=== PATIENT | female | born 2000 | race Caucasian/White ===

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

== ENCOUNTER → 2020-01-12 19:05 | Observation (INO) ==
[2020-01-12 18:39] LABS: Bacteria,Urine Few per hpf (None-Few); Bilirubin,Urine Negative (Negative); Blood,Urine Negative (Negative); Clarity,Urine Turbid (Clear); Color,Urine Light-Yellow (Yellow); Glucose,Urine (UA) Normal (Normal); Ketones,Urine Negative (Negative); Leukocyte Esterase,Urine Small (Negative); Nitrite,Urine Negative (Negative); Protein,Urine Negative (Neg-Trace); RBC,Urine 0-3 per hpf (0-3); Specific Gravity,Urine 1.005 (1.010-1.025); Squamous Epithelial Cell,Urine Few per hpf (None-Few); Urobilinogen,Urine Normal (Normal)
[2020-01-12 18:42] LABS: Basophils % 0.5 %; Eosinophils # 0.1 K/mcL (0.0-0.6); Hematocrit 31.8 % (35.3-44.9); Hemoglobin 10.5 g/dL (11.5-15.4); Immature Granulocytes % 1.2 % (0-4); Lymphocytes # 1.8 K/mcL (0.6-4.6); Lymphocytes % 21.2 %; Mean Corpuscular Hemoglobin 27.8 pg (28.0-33.3); Mean Corpuscular Volume 84.1 fL (83.0-100.0); Mean Platelet Volume 9.5 fL (9.4-12.4); Monocytes # 1.1 K/mcL (0.0-1.3); Monocytes % 12.7 %; Neutrophils # 5.3 K/mcL (1.6-8.9); Platelet Count 281 K/mcL (140-400); Red Blood Count 3.78 M/mcL (3.82-4.97); Red Cell Distribution Width 13.3 % (11.5-14.5); Segmented Neutrophils % 63.4 %; White Blood Count 8.3 K/mcL (4.3-11.1)
== END | disposition home or self-care (01) ==
LOC: 1NENULAB
PROVIDERS: ADMIT Obstetrics & Gynecology; ATTEND Obstetrics & Gynecology

== ENCOUNTER 2020-01-28 14:03 | Observation (INO) ==
[2020-01-28 15:01] LABS: Bacteria,Urine Few per hpf (None-Few); Bilirubin,Urine Negative (Negative); Blood,Urine Large (Negative); Clarity,Urine Turbid (Clear); Color,Urine Yellow (Yellow); Glucose,Urine (UA) Normal (Normal); Ketones,Urine Negative (Negative); Leukocyte Esterase,Urine Moderate (Negative); Mucus,Urine Few per lpf (None-Few); Nitrite,Urine Negative (Negative); Protein,Urine 30 mg/dL (Neg-Trace); RBC,Urine TNTC per hpf (0-3); Specific Gravity,Urine 1.017 (1.010-1.025); Squamous Epithelial Cell,Urine Moderate per hpf (None-Few); Transitional Epi Cells,Urine Many per hpf (None-Few); Urobilinogen,Urine Normal (Normal); WBC,Urine 30-50 per hpf (0-3)
[2020-01-28] MEDS ORDERED: cefTRIAXone 1,000 MG in 0.9 % Sodium Chloride Mini Bag 100 ML IVPB ONE (15:07)
[2020-01-28] MEDS ORDERED: Ringers Solution, Lactated 1,000 ML IVC ONE (15:07)
[2020-01-28] MEDS ORDERED: Ringers Solution, Lactated 1,000 ML ONE (15:09)
[2020-01-28 15:34] LABS: Basophils % 0.4 %; Eosinophils # 0.1 K/mcL (0.0-0.6); Eosinophils % 0.8 %; Hematocrit 30.4 % (35.3-44.9); Hemoglobin 9.6 g/dL (11.5-15.4); Immature Granulocytes % 1.2 % (0-4); Lymphocytes # 1.6 K/mcL (0.6-4.6); Lymphocytes % 19.5 %; Mean Corpuscular HGB Conc 31.6 g/dL (31.6-35.5); Mean Corpuscular Hemoglobin 26.4 pg (28.0-33.3); Mean Corpuscular Volume 83.5 fL (83.0-100.0); Mean Platelet Volume 9.9 fL (9.4-12.4); Monocytes % 11.8 %; Neutrophils # 5.6 K/mcL (1.6-8.9); Platelet Count 224 K/mcL (140-400); Red Blood Count 3.64 M/mcL (3.82-4.97); Red Cell Distribution Width 13.4 % (11.5-14.5); Segmented Neutrophils % 66.3 %; White Blood Count 8.4 K/mcL (4.3-11.1)
== END 2020-01-28 17:10 | disposition home or self-care (01) ==
LOC: 1NENULAB
PROVIDERS: ADMIT Obstetrics & Gynecology; ATTEND Obstetrics & Gynecology

== ENCOUNTER 2020-02-17 13:14 | Observation (INO) ==
[2020-02-17] MEDS ORDERED: Ondansetron 4 MG/2 ML VIAL IVP ONE (17:08)
[2020-02-17] MEDS ORDERED: Ringers Solution, Lactated 1,000 ML IVC SCH (17:15)
== END 2020-02-17 20:25 | disposition home or self-care (01) ==
LOC: 1NENULAB
PROVIDERS: ADMIT Obstetrics & Gynecology; ATTEND Obstetrics & Gynecology

== ENCOUNTER → 2020-02-20 04:00 | Observation (INO) ==
[2020-02-19 22:57] LABS: Bacteria,Urine Few per hpf (None-Few); Bilirubin,Urine Negative (Negative); Blood,Urine Negative (Negative); Clarity,Urine Turbid (Clear); Color,Urine Light-Yellow (Yellow); Glucose,Urine (UA) Normal (Normal); Ketones,Urine Negative (Negative); Leukocyte Esterase,Urine Moderate (Negative); Mucus,Urine Few per lpf (None-Few); Nitrite,Urine Negative (Negative); Protein,Urine Trace mg/dL (Neg-Trace); Specific Gravity,Urine 1.014 (1.010-1.025); Squamous Epithelial Cell,Urine Few per hpf (None-Few); Urobilinogen,Urine Normal (Normal)
[2020-02-20 02:32] LABS: Candida DNA DETECTED (Not Detect); Gardnerella DNA Not Detected (Not Detect); Trichomonas DNA Not Detected (Not Detect)
[~2020-02-20 04:00] MED LIST: Morphine Sulfate 2 MG/ML SYRINGE IVP ONE; Ondansetron 4 MG/2 ML VIAL IVP ONE
== END | disposition home or self-care (01) ==
LOC: 1NENULAB
PROVIDERS: ADMIT Obstetrics & Gynecology; ATTEND Obstetrics & Gynecology

== ENCOUNTER 2020-03-07 14:55 | Inpatient (IN) ==
[2020-03-07] MEDS ORDERED: Metoclopramide 10 MG/2 ML VIAL IVP PRN (18:33)
[2020-03-07] MEDS ORDERED: Naloxone 0.4 MG/ML INJ IVP PRN (18:33)
[2020-03-07] MEDS ORDERED: Famotidine 20 MG/2 ML VIAL IVP PRN (18:33)
[2020-03-07] MEDS ORDERED: Oxytocin 20 units/ LR 1000 mL 20 UNIT/1,000 ML BAG IVC SCH (18:45)
[2020-03-07 19:11] LABS: Basophils # 0.1 K/mcL (0.0-0.2); Basophils % 0.6 %; Eosinophils # 0.1 K/mcL (0.0-0.6); Eosinophils % 0.8 %; Hematocrit 36.5 % (35.3-44.9); Hemoglobin 11.7 g/dL (11.5-15.4); Immature Granulocytes % 1.2 % (0-4); Lymphocytes # 1.7 K/mcL (0.6-4.6); Lymphocytes % 20.5 %; Mean Corpuscular HGB Conc 32.1 g/dL (31.6-35.5); Mean Corpuscular Hemoglobin 27.3 pg (28.0-33.3); Mean Corpuscular Volume 85.3 fL (83.0-100.0); Mean Platelet Volume 9.7 fL (9.4-12.4); Monocytes # 0.9 K/mcL (0.0-1.3); Monocytes % 11.2 %; Neutrophils # 5.5 K/mcL (1.6-8.9); Platelet Count 218 K/mcL (140-400); Red Blood Count 4.28 M/mcL (3.82-4.97); Red Cell Distribution Width 17.4 % (11.5-14.5); Segmented Neutrophils % 65.7 %; White Blood Count 8.4 K/mcL (4.3-11.1)
[2020-03-07 19:23] LABS: Amphetamine Screen,Urine Negative ng/mL (Cutoff=1000); Barbiturate Screen,Urine Negative ng/mL (Cutoff=200); Benzodiazepines Screen,Urine Negative ng/mL (Cutoff=200); Cannabinoid Screen,Urine Negative ng/mL (Cutoff = 50); Cocaine Screen,Urine Negative ng/mL (Cutoff= 300); Opiate Screen,Urine Negative ng/mL (Cutoff=300); Phencyclidine Screen,Urine Negative ng/mL (Cutoff=25)
[2020-03-07] MEDS ORDERED: *HR* Nalbuphine 10 MG/ML AMPUL IV PRN (19:46)
[2020-03-07] MEDS ORDERED: *HR* Nalbuphine 10 MG/ML AMPUL ONE (19:48)
[2020-03-07] MEDS ORDERED: Ringers Solution, Lactated 1,000 ML ONE (19:48)
[2020-03-07] MEDS ORDERED: Ringers Solution, Lactated 1,000 ML IVC SCH (20:00)
[2020-03-07] MEDS ORDERED: EPHEDrine 50 MG/ML VIAL IVP PRN (21:28)
[2020-03-07] MEDS ORDERED: Epidural Premix (fent/bupiv) 110 ML EP SCH (21:30)
[2020-03-07] MEDS ORDERED: Epidural Premix (fent/bupiv) 110 ML EP ONE (21:33)
[2020-03-07] MEDS ORDERED: Ondansetron 4 MG/2 ML VIAL ONE (23:07)
[2020-03-08] MEDS ORDERED: Ondansetron 4 MG/2 ML VIAL IVP ONE (01:48)
[2020-03-08] MEDS ORDERED: Ondansetron 4 MG/2 ML VIAL ONE (01:50)
[2020-03-08] MEDS ORDERED: Oxytocin 20 units/ LR 1000 mL 20 UNIT/1,000 ML BAG IVC SCH (04:26)
[2020-03-08] MEDS ORDERED: Measles/Mumps/Rubella Vacc 0.5 ML VIAL SQ PRN (04:26)
[2020-03-08] MEDS ORDERED: Rho Immune Globulin 1,500 UNIT SYRINGE IM PRN (04:26)
[2020-03-08] MEDS ORDERED: Acetaminophen 325 MG TABLET PO PRN (04:26)
[2020-03-08] MEDS: Prenatal Vit/FA 1 EACH TABLET PO SCH (08:43)
[2020-03-08] MEDS: Ibuprofen 600 MG TABLET PO PRN ×3 (08:44→20:35)
[2020-03-09 05:50] LABS: Basophils # 0.1 K/mcL (0.0-0.2); Basophils % 0.7 %; Eosinophils # 0.2 K/mcL (0.0-0.6); Eosinophils % 1.4 %; Hematocrit 33.7 % (35.3-44.9); Hemoglobin 10.6 g/dL (11.5-15.4); Immature Granulocytes % 1.5 % (0-4); Lymphocytes # 3.5 K/mcL (0.6-4.6); Lymphocytes % 31.9 %; Mean Corpuscular HGB Conc 31.5 g/dL (31.6-35.5); Mean Corpuscular Hemoglobin 26.9 pg (28.0-33.3); Mean Corpuscular Volume 85.5 fL (83.0-100.0); Monocytes # 1.3 K/mcL (0.0-1.3); Neutrophils # 5.8 K/mcL (1.6-8.9); Platelet Count 205 K/mcL (140-400); Red Blood Count 3.94 M/mcL (3.82-4.97); Red Cell Distribution Width 17.2 % (11.5-14.5); Segmented Neutrophils % 52.5 %
[2020-03-09 08:30] VITALS: BP 112/74
[2020-03-09] MEDS: Prenatal Vit/FA 1 EACH TABLET PO SCH (10:10)
[2020-03-09] MEDS: Ibuprofen 600 MG TABLET PO PRN (10:50)
== END 2020-03-09 12:23 | disposition home or self-care (01) | DRG 560 ==
LOC: 1NENULAB → OBSVTOIN 14:55 → 1NENUOBS 03-08 03:15
PROVIDERS: ADMIT Student in an Organized Health Care Education/Training Program; ATTEND Student in an Organized Health Care Education/Training Program

== ENCOUNTER → 2021-05-26 19:40 | Observation (INO) ==
[2021-05-26 17:28] LABS: Bacteria,Urine Few per hpf (None-Few); Bilirubin,Urine Negative (Negative); Blood,Urine Negative (Negative); Clarity,Urine Clear (Clear); Color,Urine Yellow (Yellow); Glucose,Urine (UA) Normal (Normal); Hyaline Casts,Urine Few per lpf (None Seen); Ketones,Urine Negative (Negative); Leukocyte Esterase,Urine Negative (Negative); Mucus,Urine Few per lpf (None-Few); Nitrite,Urine Negative (Negative); Protein,Urine 30 mg/dL (Neg-Trace); RBC,Urine 0-3 per hpf (0-3); Specific Gravity,Urine > 1.030 (1.010-1.025); Squamous Epithelial Cell,Urine Moderate per hpf (None-Few); Urobilinogen,Urine Normal (Normal)
[2021-05-26 17:29] LABS: Basophils # 0.1 K/mcL (0.0-0.2); Basophils % 0.5 %; Eosinophils # 0.1 K/mcL (0.0-0.6); Eosinophils % 1.1 %; Hematocrit 33.3 % (35.3-44.9); Immature Granulocytes % 0.8 % (0-4); Lymphocytes # 1.8 K/mcL (0.6-4.6); Lymphocytes % 17.7 %; Mean Corpuscular Hemoglobin 28.4 pg (28.0-33.3); Mean Platelet Volume 9.9 fL (9.4-12.4); Monocytes # 1.6 K/mcL (0.0-1.3); Monocytes % 15.9 %; Neutrophils # 6.4 K/mcL (1.6-8.9); Platelet Count 271 K/mcL (140-400); Red Blood Count 3.87 M/mcL (3.82-4.97); Red Cell Distribution Width 13.9 % (11.5-14.5)
[~2021-05-26 19:40] MED LIST changes: +*HR* Nalbuphine 10 MG/ML AMPUL IV PRN; +MOM Conc 10 ML UD.LIQ PO ONE; -Morphine Sulfate 2 MG/ML SYRINGE IVP ONE; -Ondansetron 4 MG/2 ML VIAL IVP ONE; +Ringers Solution, Lactated 1,000 ML IVC SCH
== END | disposition home or self-care (01) ==
LOC: 1NENULAB
PROVIDERS: ADMIT Advanced Practice Midwife; ATTEND Advanced Practice Midwife

== ENCOUNTER → 2021-07-14 20:10 | Observation (INO) ==
[2021-07-14 17:24] LABS: Bacteria,Urine Few per hpf (None-Few); Bilirubin,Urine Negative (Negative); Blood,Urine Negative (Negative); Budding Yeast,Urine Few per hpf (None Seen); Clarity,Urine Turbid (Clear); Color,Urine Yellow (Yellow); Glucose,Urine (UA) Normal (Normal); Ketones,Urine Negative (Negative); Leukocyte Esterase,Urine Large (Negative); Mucus,Urine Few per lpf (None-Few); Nitrite,Urine Negative (Negative); PH,Urine 6.5 pH Units (5.0-8.0); Protein,Urine Trace mg/dL (Neg-Trace); RBC,Urine 0-3 per hpf (0-3); Specific Gravity,Urine 1.021 (1.010-1.025); Squamous Epithelial Cell,Urine Many per hpf (None-Few); Urobilinogen,Urine Normal (Normal)
[2021-07-14 17:39] LABS: Basophils # 0.1 K/mcL (0.0-0.2); Basophils % 0.7 %; Eosinophils # 0.1 K/mcL (0.0-0.6); Eosinophils % 1.4 %; Hemoglobin 11.2 g/dL (11.5-15.4); Immature Granulocytes % 1.3 % (0-4); Lymphocytes % 24.4 %; Mean Corpuscular HGB Conc 32.9 g/dL (31.6-35.5); Mean Corpuscular Hemoglobin 27.5 pg (28.0-33.3); Mean Corpuscular Volume 83.5 fL (83.0-100.0); Mean Platelet Volume 10.3 fL (9.4-12.4); Monocytes % 11.7 %; Neutrophils # 5.1 K/mcL (1.6-8.9); Platelet Count 255 K/mcL (140-400); Red Blood Count 4.07 M/mcL (3.82-4.97); Red Cell Distribution Width 14.3 % (11.5-14.5); Segmented Neutrophils % 60.5 %; White Blood Count 8.4 K/mcL (4.3-11.1)
[2021-07-14 17:59] LABS: Amphetamine Screen,Urine Negative ng/mL (Cutoff=1000); Barbiturate Screen,Urine Negative ng/mL (Cutoff=200); Benzodiazepines Screen,Urine Negative ng/mL (Cutoff=200); Cannabinoid Screen,Urine Negative ng/mL (Cutoff = 50); Cocaine Screen,Urine Negative ng/mL (Cutoff= 300); Opiate Screen,Urine Negative ng/mL (Cutoff=300); Phencyclidine Screen,Urine Negative ng/mL (Cutoff=25)
[~2021-07-14 20:10] MED LIST changes: -*HR* Nalbuphine 10 MG/ML AMPUL IV PRN; -MOM Conc 10 ML UD.LIQ PO ONE; +Ringers Solution, Lactated 1,000 ML IVC ONE; -Ringers Solution, Lactated 1,000 ML IVC SCH; +Ringers Solution, Lactated 1,000 ML ONE
== END | disposition home or self-care (01) ==
LOC: 1NENULAB
PROVIDERS: ADMIT Obstetrics & Gynecology; ATTEND Obstetrics & Gynecology

== ENCOUNTER → 2021-07-20 12:25 | Observation (INO) ==
[~2021-07-20 12:25] MED LIST changes: +EPHEDrine 50 MG/ML VIAL IVP PRN; +Epidural Premix (fent/bupiv) 110 ML EP SCH; -Ringers Solution, Lactated 1,000 ML IVC ONE; -Ringers Solution, Lactated 1,000 ML ONE
== END | disposition home or self-care (01) ==
LOC: 1NENULAB
PROVIDERS: ADMIT Obstetrics & Gynecology; ATTEND Obstetrics & Gynecology

== ENCOUNTER → 2021-07-27 12:57 | Observation (INO) | END | disposition home or self-care (01) | LOC: 1NENULAB | PROVIDERS: ADMIT Student in an Organized Health Care Education/Training Program; ATTEND Student in an Organized Health Care Education/Training Program ==

== ENCOUNTER 2021-08-02 05:54 | Inpatient (IN) ==
[2021-08-02] MEDS ORDERED: Metoclopramide 10 MG/2 ML VIAL IVP PRN (06:02)
[2021-08-02] MEDS ORDERED: Azithromycin 500 MG in 0.9 % Sodium Chloride 250 ML IVPB PRN (06:02)
[2021-08-02] MEDS ORDERED: Famotidine 20 MG/2 ML VIAL IVP PRN (06:02)
[2021-08-02] MEDS ORDERED: *HR* Nalbuphine 10 MG/ML AMPUL IV PRN (06:02)
[2021-08-02] MEDS ORDERED: Naloxone 0.4 MG/ML INJ IVP PRN (06:02)
[2021-08-02] MEDS ORDERED: Ringers Solution, Lactated 1,000 ML IVC SCH (06:15)
[2021-08-02] MEDS ORDERED: Oxytocin 30 UNIT/503 ML BAG IVC SCH ×2 (06:15→17:02)
[2021-08-02] MEDS ORDERED: EPHEDrine 50 MG/ML VIAL IVP PRN (06:45)
[2021-08-02 07:01] LABS: Basophils # 0.1 K/mcL (0.0-0.2); Basophils % 0.6 %; Eosinophils # 0.1 K/mcL (0.0-0.6); Eosinophils % 1.5 %; Hematocrit 35.7 % (35.3-44.9); Hemoglobin 11.4 g/dL (11.5-15.4); Immature Granulocytes % 1.7 % (0-4); Lymphocytes # 2.5 K/mcL (0.6-4.6); Mean Corpuscular HGB Conc 31.9 g/dL (31.6-35.5); Mean Corpuscular Hemoglobin 26.9 pg (28.0-33.3); Mean Corpuscular Volume 84.2 fL (83.0-100.0); Mean Platelet Volume 10.5 fL (9.4-12.4); Monocytes # 0.8 K/mcL (0.0-1.3); Monocytes % 9.4 %; Neutrophils # 4.5 K/mcL (1.6-8.9); Platelet Count 225 K/mcL (140-400); Red Blood Count 4.24 M/mcL (3.82-4.97); Red Cell Distribution Width 14.7 % (11.5-14.5); Segmented Neutrophils % 55.8 %; White Blood Count 8.1 K/mcL (4.3-11.1)
[2021-08-02] MEDS: Epidural Premix (fent/bupiv) 110 ML EP SCH ×2 (07:38→10:03)
[2021-08-02] MEDS: Ondansetron 4 MG/2 ML VIAL IVP PRN ×2 (10:30→16:50)
[2021-08-02] MEDS ORDERED: *HR* FentaNYL (PF) 100 MCG/2 ML VIAL ONE (13:15)
[2021-08-02] MEDS ORDERED: Ropivacaine/PF 0.2% 20 ML VIAL ONE (13:15)
[2021-08-02 15:54] LABS: Amphetamine Screen,Urine Negative ng/mL (Cutoff=1000); Barbiturate Screen,Urine Negative ng/mL (Cutoff=200); Benzodiazepines Screen,Urine Negative ng/mL (Cutoff=200); Cannabinoid Screen,Urine Negative ng/mL (Cutoff = 50); Cocaine Screen,Urine Negative ng/mL (Cutoff= 300); Opiate Screen,Urine Negative ng/mL (Cutoff=300); Phencyclidine Screen,Urine Negative ng/mL (Cutoff=25)
[2021-08-02] MEDS ORDERED: Rho Immune Globulin 1,500 UNIT SYRINGE IM PRN (17:02)
[2021-08-02] MEDS ORDERED: Measles/Mumps/Rubella Vacc 0.5 ML VIAL SQ PRN (17:02)
[2021-08-02] MEDS ORDERED: Benzocaine/Menthol 56 GM AEROSOL SPRAY TP PRN (17:02)
[2021-08-02] MEDS ORDERED: Lanolin 7 G OINT...G. TP PRN (17:02)
[2021-08-02] MEDS ORDERED: Ondansetron ODT 4 MG TAB.RAPDIS SL PRN (17:02)
[2021-08-02] MEDS: Ibuprofen 600 MG TABLET PO SCH (17:25)
[2021-08-02] MEDS: Acetaminophen 325 MG TABLET PO SCH ×2 (17:26→23:56)
[2021-08-03] MEDS: Ibuprofen 600 MG TABLET PO SCH ×2 (00:07→09:19)
[2021-08-03 03:48] VITALS: O2SAT 98
[2021-08-03 04:57] LABS: Basophils % 0.3 %; Eosinophils # 0.1 K/mcL (0.0-0.6); Eosinophils % 1.1 %; Hematocrit 30.1 % (35.3-44.9); Immature Granulocytes % 0.9 % (0-4); Lymphocytes # 2.8 K/mcL (0.6-4.6); Lymphocytes % 24.1 %; Mean Corpuscular HGB Conc 32.2 g/dL (31.6-35.5); Mean Corpuscular Hemoglobin 27.5 pg (28.0-33.3); Mean Corpuscular Volume 85.3 fL (83.0-100.0); Mean Platelet Volume 10.9 fL (9.4-12.4); Monocytes # 1.4 K/mcL (0.0-1.3); Monocytes % 12.4 %; Platelet Count 187 K/mcL (140-400); Red Blood Count 3.53 M/mcL (3.82-4.97); Red Cell Distribution Width 14.9 % (11.5-14.5); Segmented Neutrophils % 61.2 %; White Blood Count 11.5 K/mcL (4.3-11.1)
[2021-08-03 05:00] LABS: Hemoglobin 9.7 g/dL (11.5-15.4)
[2021-08-03 07:43] VITALS: BP 97/61; TEMP 98
[2021-08-03] MEDS ORDERED: Prenatal Vit/FA 1 EACH TABLET PO SCH (09:00)
[2021-08-03] MEDS: Acetaminophen 325 MG TABLET PO SCH (09:20)
[2021-08-03 11:49] VITALS: PULSE 75
== END 2021-08-03 15:15 | disposition home or self-care (01) | DRG 807 ==
LOC: 1NENULAB 05:54 → 1NENUOBS 17:03
PROVIDERS: ADMIT Obstetrics & Gynecology; ATTEND Obstetrics & Gynecology